=== PATIENT | female | born 1985 | race Caucasian/White ===

== ENCOUNTER 2020-10-16 17:04 | Emergency (ER) | payer OTHER, MEDICAID, SELFPAY ==
[2020-10-16 17:15] VITALS: BP 126/73; PULSE 80; RESP 16; TEMP 36.6; O2SAT 98; BMI 30.2
--- NOTE | 2020-10-16 17:20 | DI.RAD.S_ITS ---
PROCEDURE: XR CHEST 1V INDICATIONS: chest pain TECHNIQUE: One view of the chest was acquired. COMPARISON: None. FINDINGS: Surgical changes and devices: None. Lungs and pleura: Lungs are clear. No pleural effusions or pneumothorax. Mediastinum: Mediastinal contours appear normal. Heart size is normal. Bones and chest wall: No suspicious bony lesions. Overlying soft tissues appear unremarkable. IMPRESSION: No acute cardiopulmonary abnormality. Dictated by: Zak Golden M.D. on 10/16/2020 at 18:01 Approved by: Zak Golden M.D. on 10/16/2020 at 18:03
[2020-10-16 18:01] LABS: Add Manual Diff / Slide Review NO; Basophils Absolute Auto 0 /uL (0-100); Basophils Percent Auto 0.5 % (0-2); Eosinophils Absolute Auto 0 /uL (0-450); Eosinophils Percent Auto 0.7 % (2-4); Hematocrit 40.8 % (36-46); Hemoglobin 13.9 g/dL (12.0-16.0); Lymphocytes Absolute Auto 2000 /uL (1100-4500); Lymphocytes Percent Auto 31.6 % (25-40); Mean Corpuscular Hemoglobin 29.8 PG (26-34); Mean Corpuscular Volume 87.7 fL (80-100); Monocytes Absolute Auto 500 /uL (0-900); Monocytes Percent Auto 8.1 % (3-14); Neutrophils Absolute Auto 3800 /uL (1500-7000); Neutrophils Percent Auto 59.1 % (50-75); Platelet Count 274 X10^3/uL (150-400); Red Blood Cell Count 4.66 X10^6/uL (4.0-5.2); Red Cell Distribution Width 13.6 % (11.6-14.8); White Blood Cell Count 6.4 X10^3/uL (4.5-11.0)
[2020-10-16 18:10] LABS: Alanine Aminotransferase 28 IU/L (<35); Albumin 4.2 g/dL (3.5-5.0); Albumin Globulin Ratio 1.4 (1.0-2.8); Alkaline Phosphatase 62 U/L (38-126); Aspartate Aminotransferase 32 IU/L (14-36); BUN Creatinine Ratio 15.9 (6-22); Bilirubin Total 0.4 mg/dL (0.2-1.3); Blood Urea Nitrogen 11 mg/dL (7-17); Calcium 9.3 mg/dL (8.4-10.2); Carbon Dioxide 29 mmol/L (22-32); Chloride 104 mmol/L (98-107); Creatine Kinase 81 U/L (30-135); Estimated Glomerular Filt Rate > 60.0 mL/min (>60); Globulin 3.1 g/dL (1.7-4.1); Glucose 116 mg/dL (70-100); HEMOLYSIS 31 (0-50); Lipase 101 U/L (23-300); Sodium 141 mmol/L (137-145); Total Protein 7.3 g/dL (6.3-8.2)
[2020-10-16 18:22] LABS: Troponin I < 0.012 ng/mL (0.01-0.034)
[2020-10-16 18:27] VITALS: PULSE 74; RESP 21; O2SAT 99
[2020-10-16 18:28] VITALS: BP 107/71; PULSE 87; RESP 18; O2SAT 98
[2020-10-16 18:30] VITALS: BP 106/70; PULSE 74; RESP 22; O2SAT 97
--- NOTE | 2020-10-16 18:35 | ED_ITS ---
HPI - Arrhythmia/Palpitations General Chief Complaint: Arrhythmia/Palpitations Stated Complaint: tachycardia Time Seen by Provider: 10/16/20 18:35 Source: patient Mode of arrival: Ambulatory Limitations: no limitations History of Present Illness HPI narrative: 34-year-old female nonsmoker with history of tachycardia presents with a chief complaint of an episode of tachycardia prior to her arrival. She was a smart watch and it registered in the 140s. She was feeling a bit dizzy, weak and lightheaded as well as having palpitations. It had resolved prior to her arrival. She denies any new medications. She denies any recent illness with fever chills, nausea, vomiting, diarrhea. She denies urinary complaints such as dysuria, frequency or urgency. She has been taking her medications as directed. Related Data Allergies Allergy/AdvReac Type Severity Reaction Status Date / Time progesterone Allergy Intermediate Hives Verified 10/16/20 17:20 Sulfa (Sulfonamide Allergy Intermediate Hives Verified 10/16/20 17:20 Antibiotics) morphine AdvReac Severe Vomiting Verified 10/16/20 17:20 Review of Systems Review of Systems Narrative: GENERAL: Denies chills, fatigue, malaise, fever, sweats. HEENT: Denies sinus pain, ear pain, sore throat, difficulty swallowing, dizziness. RESPIRATORY: Denies dyspnea, cough, wheezing, hemoptysis, sputum. CARDIOVASCULAR: See HPI GASTROINTESTINAL: Denies nausea, vomiting, abdominal pain, diarrhea, constipa tion, melena. : Denies dysuria, frequency, incontinence, hematuria, urinary retention. MUSCULOSKELETAL: denies weakness, joint pain, or bony pain SKIN: Denies rash, skin lesions, or other NEUROLOGIC: Denies weakness, headache, numbness, change in speech, confusion, seizures, incoordination. PSYCHIATRIC: No concerning psychosocial issues. 12 point review of systems is negative except for those stated above Patient History Social History Smoking Status: Never smoker Smoking Status: Never smoker alcohol intake frequency: a few times a month Substance Use Type: does not use Exam Narrative Exam Narrative: GENERAL: [34] year old patient appears stated age. Well- developed patient, in mild distress. HEAD: Atraumatic. Normocephalic. EYES: Pupils equal round and reactive. Extraocular motions intact. No scleral icterus. No injection or drainage. ENT: Nose without bleeding, purulent drainage. Throat without erythema, tonsillar hypertrophy or exudate. Airway patent. NECK: Trachea midline. Non tender CARDIOVASCULAR: Regular rate and rhythm without murmurs, gallops, or rubs. RESPIRATORY: Clear to auscultation. Breath sounds equal bilaterally. No wheezes, rales, or rhonchi. GASTROINTESTINAL: Abdomen soft, non-tender, nondistended. EXTREMITIES: No edema or joint tenderness. BACK: Nontender without deformity or crepitance. No flank tenderness. NEURO: AOx3. SKIN: No rash or erythema of visible areas Initial Vital Signs Initial Vital Signs: Vital Signs Temperature 97.9 F 10/16/20 17:15 Pulse Rate 80 10/16/20 17:15 Respiratory Rate 16 10/16/20 17:15 Blood Pressure 126/73 10/16/20 17:15 Pulse Oximetry 98 10/16/20 17:15 Course Orders Ordered: ED Orders 10/16/20 17:20 XR chest 1V Stat 10/16/20 17:29 EKG-12 Lead Stat 10/16/20 17:44 Complete Blood Count AUTO DIFF Stat Comprehensive Metabolic Panel Stat Lipase Stat Troponin & CK Cardiac Panel Stat Vital Signs Vital signs: Vital Signs - 8 hr 10/16/20 17:15 Temperature 97.9 F Pulse Rate 80 Respiratory Rate 16 Blood Pressure 126/73 Pulse Oximetry 98 MDM - Arrhythmia/Palpitations Lab Data Result diagrams: 10/16/20 17:44 10/16/20 17:44 Labs: Lab Results 10/16/20 10/16/20 Range/Units 17:44 17:44 WBC 6.4 (4.5-11.0) X10^3/uL RBC 4.66 (4.0-5.2) X10^6/uL Hgb 13.9 (12.0-16.0) g/dL Hct 40.8 (36-46) % MCV 87.7 (80-100) fL MCH 29.8 (26-34) PG MCHC 34.0 (30-36) % RDW 13.6 (11.6-14.8) % Plt Count 274 (150-400) X10^3/uL Neut % (Auto) 59.1 (50-75) % Lymph % (Auto) 31.6 (25-40) % Owen % (Auto) 8.1 (3-14) % Eos % (Auto) 0.7 L (2-4) % Baso % (Auto) 0.5 (0-2) % Neut # (Auto) 3800 (5031-7927) /uL Lymph # (Auto) 2000 (5932-6299) /uL Owen # (Auto) 500 (0-900) /uL Eos # (Auto) 0 (0-450) /uL Baso # (Auto) 0 (0-100) /uL Sodium 141 (137-145) mmol/L Potassium 4.0 (3.4-5.1) mmol/L Chloride 104 (98-107) mmol/L Carbon Dioxide 29 (22-32) mmol/L BUN 11 (7-17) mg/dL Creatinine 0.69 (0.52-1.04) mg/dL Estimated GFR > 60.0 (>60) mL/min BUN/Creatinine Ratio 15.9 (6-22) Glucose 116 H (70-100) mg/dL Calcium 9.3 (8.4-10.2) mg/dL Total Bilirubin 0.4 (0.2-1.3) mg/dL AST 32 (14-36) IU/L ALT 28 (<35) IU/L Alkaline Phosphatase 62 (38-126) U/L Total Creatine Kinase 81 (30-135) U/L CK-MB (CK-2) TNP CK-MB (CK-2) Rel Index TNP Troponin I < 0.012 (0.01-0.034) ng/mL Total Protein 7.3 (6.3-8.2) g/dL Albumin 4.2 (3.5-5.0) g/dL Globulin 3.1 (1.7-4.1) g/dL Albumin/Globulin Ratio 1.4 (1.0-2.8) Lipase 101 (23-300) U/L Imaging Data Chest x-ray: Radiologist's Impresson: Chart Viewer Diagnostics DATE TYPE STATUS REF RANGE/AUTHOR Hx Today 17:20 Zak Golden 34, F1 REG ER, [facility] ED R07 165.1cm 82.554kg BMI: 30.3kg/m? Arrhythmia/Palpitations Search Chart No Data to Display No Data to Display Hives Hives Vomiting No Data to Display Today 17:15 Carol Wilhelm 34 F [address] [id number] ReportSigned Patient: Carol WilhelmMR#: [id number]: [id number]:[id number]/Sex: 34 / FDate of Service: 10/16/20Loc: EDAccession Number: [id number] Procedure: XR chest 1V Ordering Provider: Charles Sneed D.O. PROCEDURE: XR CHEST 1V INDICATIONS: chest pain TECHNIQUE: One view of the chest was acquired. COMPARISON: None. FINDINGS: Surgical changes and devices: None. Lungs and pleura: Lungs are clear. No pleural effusions or pneumothorax. Mediastinum: Mediastinal contours appear normal. Heart size is normal. Bones and chest wall: No suspicious bony lesions. Overlying soft tissues appear unremarkable. IMPRESSION: No acute cardiopulmonary abnormality. Dictated by: Zak Golden M.D. on 10/16/2020 at 18:01 Approved by: Zak Golden M.D. on 10/16/2020 at 18:03 ECG Data Interpretation: EKG is normal sinus rhythm rate [77 ] and free of any signs of ischemia or ectopy. No ST segmental elevation or depression. No T wave inversions MDM Narrative Medical decision making narrative: Patient had an episode of tachycardia lasting approximately 15 minutes, she was symptomatic a time without has probably resolved with the resolution of her tachycardia. She got up into the 140s and now is back at her baseline. Her physical exam, history, labs, EKG and chest x- ray are very reassuring. No evidence of electrolyte abnormality or other findings requiring specific intervention. Return precautions given and questions answered to her apparent satisfaction Discharge Plan Departure Patient Disposition: Home Clinical Impression: Palpitations, Tachycardia Instructions: DI for Tachycardia Activity Restrictions/Additional Instructions: *You have been diagnosed with [tachycardia, resolved. Very reassuring physical exam, labs and EKG] *What to do: *Please continue to take your regular medications as directed. 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 Let them know you were seen in the Emergency Department and that we ask that you be seen in follow up. We will electronically transmit a record of today's note if your PCP is in our system *If you do not have a primary care provider please contact the [facility] Resource line at [phone]. They will ask some questions about your medical history and help get you set up with a doctor in the community. *Return to Emergency Department if you should have any new, worsening or concerning symptoms, such as [fever greater than 101 F, shaking chills, worsenin g pain, persistent vomiting or other bothersome symptoms] Stand Alone Forms: Work Release Note
--- NOTE | 2020-10-16 18:38 | PC.NURSE ---
Pt states hx tachycardia that she takes meds for
== END 2020-10-16 19:02 | disposition home or self-care (01) ==
PROVIDERS: Emergency Medicine; Emergency Provider Emergency Medicine
DX: R00.2 Palpitations (principal); R00.0 Tachycardia, unspecified; R42 Dizziness and giddiness
CPT/HCPCS: 36415; 71045; 80053; 82550; 83690; 84484; 85025; 93005; 99283; 99284